=== PATIENT | female | born 1995 | race Caucasian/White ===

== ENCOUNTER 2022-05-17 18:18 | Emergency (ER) | payer OTHER ==
[2022-05-17 18:43] LABS: BASOPHILS # (AUTO) 0.1 10^3/uL (0.0-0.1); BASOPHILS % (AUTO) 0.6 %; EOSINOPHILS # (AUTO) 0.3 10^3/uL (0.0-0.7); EOSINOPHILS % (AUTO) 2.7 %; HCT - HEMATOCRIT 37.8 % (37.0-47.0); HGB - HEMOGLOBIN 12.6 g/dL (12.0-16.0); LYMPHOCYTES # (AUTO) 2.9 10^3/uL (1.5-3.5); LYMPHOCYTES % (AUTO) 29.3 %; MEAN CORPUSCULAR HEMOGLOBIN 29.4 pg (27.0-31.0); MEAN CORPUSCULAR HGB CONC 33.3 g/dL (32.0-36.0); MEAN CORPUSCULAR VOLUME 88.1 fL (81.0-99.0); MEAN PLATELET VOLUME 9.7 fL (7.9-10.8); MONOCYTES % (AUTO) 9.5 %; NEUTROPHILS # (AUTO) 5.8 10^3/uL (1.5-6.6); NEUTROPHILS % (AUTO) 57.6 %; PLT - PLATELET COUNT 315 10^3/uL (130-450); RED BLOOD COUNT 4.29 10^6/uL (4.20-5.40); RED CELL DISTRIBUTION WIDTH 12.6 % (12.0-15.0)
[2022-05-17 19:01] LABS: ALBUMIN 3.8 g/dL (3.2-5.5); ALBUMIN/GLOBULIN RATIO 1.1 (1.0-2.2); BILIRUBIN,TOTAL 0.3 mg/dL (0.2-1.0); CALCIUM 9.2 mg/dL (8.5-10.3); CREATININE 0.5 mg/dL (0.4-1.0); POTASSIUM 3.8 mmol/L (3.5-5.0); TOTAL PROTEIN 7.2 g/dL (6.7-8.2)
--- NOTE | 2022-05-17 19:43 | ED Physician Documentation ---
PD HPI ABD PAIN - Stated complaint Stated Complaint: BLEEDING/6WKS - Chief complaint Chief Complaint: Abd Pain - History obtained from History obtained from: Patient - Additional information Additional information: G2, P1 at 6 weeks gestation had some spotting yesterday with slightly heavier bleeding today but still much less than menses associated with mild pelvic cramping. No problems with first . Review of Systems Ten Systems: 10 systems reviewed and negative Cardiac: reports: Reviewed and negative Respiratory: reports: Reviewed and negative PD PAST MEDICAL HISTORY - Present Medications Home Medications: Ambulatory Orders Medication Instructions Recorded Confirmed Fluoxetine HCl [Prozac] 60 mg PO DAILY 05/17/22 05/17/22 - Allergies Allergies/Adverse Reactions: Allergies Allergy/AdvReac Type Severity Reaction Status Date / Time No Known Drug Allergies Allergy Verified 05/17/22 18:27 PD ED PE NORMAL - Vitals Vital signs reviewed: Yes - General General: Alert and oriented X 3, No acute distress - Abdomen Abdomen: Non tender - Neuro Neuro: Alert and oriented X 3, Normal speech - Psych Psych: Normal mood, Normal affect Results - Vitals Vitals: Vital Signs - 24 hr 05/17/22 05/17/22 18:24 19:49 Temperature 36.7 C 36.6 C Heart Rate 94 85 Respiratory 16 16 Rate Blood Pressure 133/65 H 118/53 L O2 Saturation 100 100 Oxygen O2 Source Room air - Labs Labs: Laboratory Tests 05/17/22 05/17/22 05/17/22 18:35 18:35 18:35 WBC 10.0 RBC 4.29 Hgb 12.6 Hct 37.8 MCV 88.1 MCH 29.4 MCHC 33.3 RDW 12.6 Plt Count 315 MPV 9.7 Neut # (Auto) 5.8 Lymph # (Auto) 2.9 Eagle # (Auto) 1.0 Eos # (Auto) 0.3 Baso # (Auto) 0.1 Absolute Nucleated RBC 0.00 Nucleated RBC % 0.0 Sodium 136 Potassium 3.8 Chloride 102 Carbon Dioxide 26 Anion Gap 8.0 BUN 11 Creatinine 0.5 Estimated GFR (MDRD) 146 Glucose 93 Calcium 9.2 Total Bilirubin 0.3 AST 19 ALT 26 Alkaline Phosphatase 51 Total Protein 7.2 Albumin 3.8 Globulin 3.4 Albumin/Globulin Ratio 1.1 Lipase 31 HCG, Quant Blood Type B POSITIVE 05/17/22 18:35 WBC RBC Hgb Hct MCV MCH MCHC RDW Plt Count MPV Neut # (Auto) Lymph # (Auto) Eagle # (Auto) Eos # (Auto) Baso # (Auto) Absolute Nucleated RBC Nucleated RBC % Sodium Potassium Chloride Carbon Dioxide Anion Gap BUN Creatinine Estimated GFR (MDRD) Glucose Calcium Total Bilirubin AST ALT Alkaline Phosphatase Total Protein Albumin Globulin Albumin/Globulin Ratio Lipase HCG, Quant 52249.00 Blood Type PD MEDICAL DECISION MAKING - ED course ED course: 27-year-old woman at 6 weeks presents with vaginal bleeding which is light in . The work-up here is reassuring with intrauterine , no subchorionic hemorrhage or other abnormal findings and the patient was reassured but given close return precautions. Departure - Departure Disposition: 01 Home, Self Care Clinical Impression: Threatened Condition: Good Record reviewed to determine appropriate education?: Yes Instructions: ED Miscarriage Poss Comments: Note for your records that your blood type is be positive. Your work-up today is reassuring as we are able to see an intrauterine with good heart rate and no other concerning findings. Return if worsening and follow-up with your new OB as scheduled. Discharge Date/Time: 05/17/22 19:50
[2022-05-17 19:50] VITALS: BP 118/53
--- NOTE | 2022-05-17 20:14 | Ultrasound Report ---
PROCEDURE: OB First Trimester w/TV INDICATIONS: 6 weeks vaginal bleeding OUTSIDE/PRIOR DATING DATA: Last menstrual period (LMP): 03/31/2022. LMP-based estimated date of delivery (TERRI): 01/05/2023. First dating scan (date and location): 05/17/2022, current study. Estimated date of delivery (TERRI) from first dating scan: 01/09/2023. TECHNIQUE: Real-time scanning was performed of the fetus and maternal pelvic organs, with image documentation. Endovaginal scanning was also performed to better visualize the fetus and maternal ovaries. COMPARISON: None FINDINGS: Embryo: Mean gestational sac diameter is 1.5 cm corresponding to a 6 week 2 day gestation. There is a pole with an average crown-rump length of 0.4 cm corresponding to a 6 week 1 day gestation. T here is detectable cardiac activity and the fetus at a rate of 109 beats per minutes. Heart rate: 109 Measurement variability in dating: +/- 4 weeks by LMP, +/- 7 days by mean sac diameter (use before 6 weeks gestation if crown-rump length not able to be measured), +/- 5 days by crown-rump length (6-12 weeks gestation). Maternal organs: The uterus is anteverted. The cervix is closed. There is no perigestational hemorrh age. The left ovary contains a simple corpus luteum. The right ovary appears normal. \ IMPRESSION: 1. Single viable intrauterine with a gestational age by crown-rump length of 6 weeks, 1 day , in good agreement with clinical dates. 2. Closed cervix and no perigestational hemorrhage seen. 3. Preliminary results given by the calendering machine operator to the ordering provider immediately following the st udy. Reviewed by: Brittney Mirza MD on 05/17/2022 8:12 PM PDT Approved by: Brittney Mirza MD on 05/17/2022 8:12 PM PDT Station ID: [id number]
== END 2022-05-17 19:50 | disposition home or self-care (01) ==
LOC: ED 18:18
DX: O20.0 Threatened abortion (principal); Z3A.01 Less than 8 weeks gestation of pregnancy
CPT/HCPCS: 36415; 80053; 83690; 84702; 85025; 86900; 86901; 99282; 99284

== ENCOUNTER 2022-05-18 14:18 | Emergency (ER) | payer OTHER ==
--- NOTE | 2022-05-18 14:22 | ED Physician Documentation ---
PD HPI FEMALE - Stated complaint Stated Complaint: BLEEDING/6WKS - History obtained from History obtained from: Patient PD PAST MEDICAL HISTORY - Present Medications Home Medications: Ambulatory Orders Medication Instructions Recorded Confirmed Fluoxetine HCl [Prozac] 60 mg PO DAILY 05/17/22 05/17/22 - Allergies Allergies/Adverse Reactions: Allergies Allergy/AdvReac Type Severity Reaction Status Date / Time No Known Drug Allergies Allergy Verified 05/17/22 18:27 Results - Vitals Vitals: Oxygen O2 Source Room air
--- NOTE | 2022-05-18 14:40 | ED Physician Documentation ---
History of Present Illness - Stated complaint Stated Complaint: BLEEDING/6WKS - Chief complaint Chief Complaint: Abd Pain - History obtained from History obtained from: Patient - Additonal information Additional information: 27-year-old at now 6 weeks 2 days was seen yesterday for bleeding and abdominal cramping. Found to have an IUP at 6 weeks 1 day gestation. Returns today with heavier bleeding and some tissue loss which after discussion is probably clot. Pain is minimal to nonexistent. Review of Systems Ten Systems: 10 systems reviewed and negative Constitutional: denies: Fever, Chills Throat: reports: Reviewed and negative Cardiac: reports: Reviewed and negative PD PAST MEDICAL HISTORY - Present Medications Home Medications: Ambulatory Orders Medication Instructions Recorded Confirmed Fluoxetine HCl [Prozac] 60 mg PO DAILY 05/17/22 05/18/22 - Allergies Allergies/Adverse Reactions: Allergies Allergy/AdvReac Type Severity Reaction Status Date / Time No Known Drug Allergies Allergy Verified 05/17/22 18:27 PD ED PE NORMAL - Vitals Vital signs reviewed: Yes - General General: Alert and oriented X 3, No acute distress - Abdomen Abdomen: Soft, Non tender - Back Back: No CVA TTP, No spinal TTP - Derm Derm: Normal color, Warm and dry - Extremities Extremities: No edema, No calf tenderness / cord - Neuro Neuro: Alert and oriented X 3, Normal speech Results - Vitals Vitals: Vital Signs - 24 hr 05/18/22 05/18/22 14:27 16:30 Temperature 37.1 C Heart Rate 93 77 Respiratory 16 16 Rate Blood Pressure 130/66 128/70 O2 Saturation 99 99 Oxygen O2 Source Room air - Labs Labs: Laboratory Tests 05/18/22 14:53 HCG, Quant 07976.00 PD MEDICAL DECISION MAKING - ED course ED course: We discussed that the work-up today could be conservative with watchful waiting versus an ultrasound, the purpose of an ultrasound would mostly be for information and she would like to go ahead with it. Set ultrasound still shows single live IUP, but this time with a small subchorionic hemorrhage which was discussed with the patient. Departure - Departure Disposition: 01 Home, Self Care Clinical Impression: Threatened Condition: Good Record reviewed to determine appropriate education?: Yes Instructions: ED Miscarriage Poss Comments: Ultrasound today still showing fetus okay but you have developed a subchorionic hemorrhage which is bleeding under the future placenta. Although this raises the risk of miscarriage, the chance of you carrying this to term is still quite high. Return for new or worsening symptoms. Follow-up with your OB as scheduled next week. Discharge Date/Time: 05/18/22 16:30
[2022-05-18 16:32] VITALS: BP 128/70
--- NOTE | 2022-05-18 16:32 | Ultrasound Report ---
PROCEDURE: OB First Trimester w/TV INDICATIONS: preg vb OUTSIDE/PRIOR DATING DATA: Last menstrual period (LMP): 03/31/2022. LMP-based estimated date of delivery (TERRI): 01/05/2023. First dating scan (date and location): 05/17/2022. Estimated date of delivery (TERRI) from first dating scan: 01/09/2023. The below data below was generated using the ultrasound TERRI of 01/09/2023 TECHNIQUE: Real-time scanning was performed of the fetus and maternal pelvic organs, with image documentation. Endovaginal scanning was also performed to better visualize the fetus and maternal ovaries. COMPARISON: 05/17/2022 FINDINGS: Embryo: There is an intrauterine gestational sac seen, with a pole present, which measures 0.5 cm, which corresponds to an estimated gestational age of 6 weeks 2 days. cardiac activity is s een, with a measured heart rate of 116 bpm. There is a small amount of perigestational/subchorionic hemorrhage seen, measuring up to 1.4 cm. Maternal organs: Ovaries are within normal limits, with a left corpus luteum present. IMPRESSION: Single live intrauterine . A small amount of subchorionic hemorrhage is seen. Close clinical follow-up with serial beta hCG measurements and serial ultrasound would be recommended , as clinically appropriate. Reviewed by: Jose Ramon Oro MD on 05/18/2022 3:31 PM SANG Approved by: Jose Ramon Oro MD on 05/18/2022 3:31 PM SANG Station ID: [id number]
== END 2022-05-18 16:30 | disposition home or self-care (01) ==
LOC: ED 14:18
DX: O20.0 Threatened abortion (principal); Z3A.01 Less than 8 weeks gestation of pregnancy
CPT/HCPCS: 36415; 84702; 99282; 99284